=== PATIENT | male | born 1960 | race Caucasian/White ===

== ENCOUNTER 2017-11-14 09:00 | Outpatient (CLI) | payer BC ==
--- NOTE | 2017-11-14 10:27 | RAD ---
THREE VIEWS LEFT SHOULDER: Indication: Left shoulder discomfort. Comparison: None. 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 There is a small ossific density seen along the posteri or superior aspect of the glenoid which may reflect a small labral ossicle. If clinically indicated, further evaluation with an MRI of the left shoulder may be helpful. Visualized left lung is clear. POS: [facility]
== END 2017-11-14 09:01 | disposition home or self-care (01) ==
LOC: SCSRAD 09:00
PROVIDERS: ATTEND Nurse Practitioner Family
DX: M25.512 Pain in left shoulder (principal); M19.012 Primary osteoarthritis, left shoulder; R93.7 Abnormal findings on diagnostic imaging of other parts of musculoskeletal system